=== PATIENT | female | born 1980 | race Hispanic/Latino ===

== ENCOUNTER 2017-11-05 22:29 | Emergency (ER) | payer SELFPAY | END 2017-11-05 22:59 | disposition left against medical advice (07) | LOC: ED 22:29 | DX: Z53.21 Procedure and treatment not carried out due to patient leaving prior to being seen by health care provider (principal) ==

== ENCOUNTER 2017-11-06 09:49 | Emergency (ER) | payer SELFPAY ==
[2017-11-06 09:56] VITALS: BP 123/63
--- NOTE | 2017-11-06 11:19 | Emergency Department Report ---
Blank Doc - Documentation Documentation: Patient is a 36-year-old female who is presenting with 2 days of some mild discomfort in the left lower quadrants as well as urinary frequency. Patient states that on a small amount of urine is able to be pushed out while she's tried to go the bathroom. Patient denies any fevers nausea vomiting or back pain at this time. Urinalysis will be sent patient will be reassessed
[2017-11-06 12:56] LABS: Bilirubin,Urine NEG (Negative); Blood,Urine LG (Negative); Calcium Oxalate Crystals,Urine 3+; Color,Urine Yellow (Yellow); Mucus,Urine 3+ /HPF
[2017-11-06 13:00] LABS: RBC,Urine > 182.0 /HPF (0.0-6.0)
[2017-11-06 13:09] LABS: HCG Qualitative,Urine Negative (Negative)
--- NOTE | 2017-11-06 13:10 | Emergency Department Report ---
ED Female HPI - General Chief complaint: Abdominal Pain Stated complaint: ABD PAIN Time Seen by Provider: 11/06/17 11:15 Source: patient Mode of arrival: Ambulatory Limitations: No Limitations - History of Present Illness Initial comments: Patient is a 36-year-old female who is presenting left lower quadrant tenderness and urgency for 2 days. Patient has a past medical history of kidney stones. She admits to hematuria which started yesterday. States she feel pressure in left lower abdomen with sensation to void and pass bowel at the same time. These symptoms are similar to last time when she had kidney stones. Patient states symptoms have resolved at this time. Patient denies fever, nausea/vomiting, vaginal discharge, frequency, and back pain. MD Complaint: pelvic pain (left lower quadrant pain) Onset/Timin -: days(s) Location: LLQ Radiation: non-radiating Severity: mild Severity scale (0 -10): 3 Quality: sharp Consistency: intermittent Improves with: none Worsens with: none Are you Now?: No Last Menstrual Period: 10/12/17 EDC: 07/19/18 Associated Symptoms: denies other symptoms - Related Data Sexually active: No Previous Rx's Medication Instructions Recorded Last Taken Type Ciprofloxacin HCl [Ciprofloxacin 500 mg PO BID #20 tablet 03/26/15 Unknown Rx TAB] Ibuprofen [Motrin 800 MG tab] 800 mg PO Q8HR PRN #30 tablet 03/26/15 Unknown Rx Ondansetron [Zofran Odt] 4 mg PO Q6HR #20 tab.rapdis 03/26/15 Unknown Rx oxyCODONE /ACETAMINOPHEN [Percocet 1 tab PO Q6HR PRN #15 tablet 03/26/15 Unknown Rx 5/325] Sulfamethoxazole/Trimethoprim 1 each PO BID #6 tablet 11/06/17 Unknown Rx [Bactrim DS TAB] Allergies Allergy/AdvReac Type Severity Reaction Status Date / Time No Known Allergies Allergy Verified 11/06/17 09:55 ED Review of Systems ROS: Stated complaint: ABD PAIN Other details as noted in HPI Constitutional: denies: chills, fever Respiratory: denies: cough, shortness of breath, wheezing Cardiovascular: denies: chest pain, palpitations Gastrointestinal: abdominal pain (left lower quadrant tenderness). denies: nausea, vomiting, diarrhea Genitourinary: urgency, hematuria. denies: dysuria, frequency, discharge, abnormal menses, dyspareunia Musculoskeletal: denies: back pain, joint swelling, arthralgia, myalgia Neurological: denies: headache, weakness, numbness, paresthesias Psychiatric: denies: anxiety, depression ED Past Medical Hx - Past Medical History Previous Medical History?: Yes Hx Kidney Stones: Yes - Surgical History Past Surgical History?: No - Social History Smoking Status: Current Every Day Smoker Substance Use Type: Alcohol, Marijuana - Medications Home Medications: Home Medications Medication Instructions Recorded Confirmed Last Taken Type Ciprofloxacin HCl [Ciprofloxacin 500 mg PO BID #20 tablet 03/26/15 Unknown Rx TAB] Ibuprofen [Motrin 800 MG tab] 800 mg PO Q8HR PRN #30 tablet 03/26/15 Unknown Rx Ondansetron [Zofran Odt] 4 mg PO Q6HR #20 tab.rapdis 03/26/15 Unknown Rx oxyCODONE /ACETAMINOPHEN [Percocet 1 tab PO Q6HR PRN #15 tablet 03/26/15 Unknown Rx 5/325] Sulfamethoxazole/Trimethoprim 1 each PO BID #6 tablet 11/06/17 Unknown Rx [Bactrim DS TAB] ED Physical Exam - General Limitations: No Limitations General appearance: alert, in no apparent distress - Cardiovascular Cardiovascular Exam: Present: regular rate, normal rhythm. Absent: systolic murmur, diastolic murmur, rubs, gallop - GI/Abdominal GI/Abdominal exam: Present: soft, normal bowel sounds. Absent: distended, tenderness, guarding, rebound, rigid, organomegaly, mass - Back Exam Back exam: Present: normal inspection, full ROM. Absent: CVA tenderness (R), CVA tenderness (L) - Neurological Exam Neurological exam: Present: alert, oriented X3 - Psychiatric Psychiatric exam: Present: normal affect, normal mood - Skin Skin exam: Present: warm, dry, intact, normal color. Absent: rash ED Course Vital Signs 11/06/17 09:51 Temperature 98.2 F Pulse Rate 70 Respiratory 22 Rate Blood Pressure 123/63 O2 Sat by Pulse 99 Oximetry ED Medical Decision Making - Medical Decision Making This is a 36-year-old female who presents with left lower quadrant pain and urgency for 2 days. Patient was examined by me and Dr. [place]. Vitals are stable and in no acute distress. Urinalysis and urine hCG obtained. Urine hCG is negative, urinalysis elevated epithelial cells and moderate blood. Empirically treated with Bactrim DS. Patient instructed to monitor toilet for signs of passing stones due to past medical history. His water intake. Discharged home in stable condition. Discussed prevention options. F/U with [facility] in 2-3 days. Critical care attestation.: If time is entered above; I have spent that time in minutes in the direct care of this critically ill patient, excluding procedure time. ED Disposition Clinical Impression: Lower abdominal pain Acute cystitis Qualifiers: Hematuria presence: with hematuria Qualified Code(s): N30.01 - Acute cystitis with hematuria Disposition: TO HOME OR SELFCARE Is pt being admited?: No Does the pt Need Aspirin: No Condition: Stable Instructions: Abdominal Pain (ED), Urinary Tract Infection in Women (ED) Additional Instructions: Avoid drinking alcohol while taking antibiotics and for 24 hours after completion. Continue safe sexual intercourse. Increase fluid intake to 1-2 L of water per day. Follow up with Primary Care Provider or health department. Prescriptions: Sulfamethoxazole/Trimethoprim [Bactrim DS TAB] 1 each PO BID #6 tablet Referrals: [facility] [Outside] - 3-5 Days [facility] [Outside] - 3-5 Days [facility] [Outside] - 3-5 Days Forms: Work/School Release Form(ED) Time of Disposition: 13:26 Print Language: HUNGARIAN
== END 2017-11-06 13:34 | disposition home or self-care (01) ==
LOC: ED 09:49
DX: N30.01 Acute cystitis with hematuria (principal); F17.200 Nicotine dependence, unspecified, uncomplicated; F12.10 Cannabis abuse, uncomplicated
CPT/HCPCS: 81001; 81025; 99283